=== PATIENT | male | born 1945 | race Caucasian/White ===

== ENCOUNTER 2017-06-20 19:11 | Emergency (ER) | payer OTHER ==
[~2017-06-20] VITALS: Ht 175.3 cm; Wt 102.1 kg
[2017-06-20 19:11] VITALS: BP_SYST 150
[~2017-06-20 19:11] MED LIST: ASPI325T2 PO; ATEN-41 PO; LISI-209 PO; OMEP20CA10 PO; SIMV40TA5 PO
[2017-06-20] MEDS ORDERED: ACETAMINOPHEN 500 MG TABLET PO ONE (19:30)
[2017-06-20] MEDS ORDERED: OXYCODONE/ACETAMINOPHEN 5-325 TABLET PO ONE (20:30)
[2017-06-20] MEDS ORDERED: oxyCODONE HCL 10 MG TAB.ER.12H PO ONE (20:45)
[2017-06-20] MEDS ORDERED: BUPIVACAINE /PF 0.25% 30 ML VIAL INJ ONE (21:30)
[2017-06-20] MEDS ORDERED: TETANUS IMMUNE GLOBULIN/PF 250 UNITS/SYR (HYPERTET) I.M. ONE (22:00)
[2017-06-20] MEDS ORDERED: BACITRACIN 1 GM OINT TP ONE ×2 (22:00→22:03)
[2017-06-20 22:10] VITALS: BP_SYST 131
== END 2017-06-20 22:00 | disposition home or self-care (01) ==
LOC: SED 19:11
DX: S01.112A Laceration without foreign body of left eyelid and periocular area, initial encounter (principal); S61.217A Laceration without foreign body of left little finger without damage to nail, initial encounter; I25.2 Old myocardial infarction; I10 Essential (primary) hypertension; Z99.2 Dependence on renal dialysis; Z79.82 Long term (current) use of aspirin; Z79.899 Other long term (current) drug therapy; W01.0XXA Fall on same level from slipping, tripping and stumbling without subsequent striking against object, initial encounter; Y93.01 Activity, walking, marching and hiking; Y92.89 Other specified places as the place of occurrence of the external cause; Y99.8 Other external cause status
CPT/HCPCS: 12002; 12013; 70450; 70486; 73130; 96372; 99284; J1670; J3490

== ENCOUNTER 2019-12-29 19:32 | Observation (INO) | payer OTHER ==
[~2019-12-29] VITALS: Ht 175.3 cm; Wt 72.6 kg
[~2019-12-29 19:32] MED LIST changes: +ASPI-858 PO; -ASPI325T2 PO; -OMEP20CA10 PO; +OMEP20CA11 PO
[2019-12-29 19:33] VITALS: BP_SYST 135
[2019-12-29] MEDS ORDERED: MORPHINE 2 MG/ML INJ. SYRINGE IVP ONE ×2 (20:15→21:45)
[2019-12-29] MEDS ORDERED: NITROGLYCERIN 1 INCH (GM) OINT. TP ONE (20:15)
[2019-12-29] MEDS ORDERED: NACL 0.9% 1,000 ML IV ONE (20:15)
[2019-12-29 20:34] LABS: BASOPHILS # (AUTO) 0.1 K/uL (0.0-0.2); BASOPHILS % (AUTO) 0.8 % (0.0-2.0); EOSINOPHILS # (AUTO) 0.1 K/uL (0.0-0.4); EOSINOPHILS % (AUTO) 1.2 % (0.0-4.0); HEMATOCRIT 45.3 % (36-54); HEMOGLOBIN 15.3 g/dL (14.0-18.0); LYMPHOCYTES # (AUTO) 2.3 K/uL (1.0-5.5); LYMPHOCYTES % (AUTO) 24.4 % (20.5-51.5); MEAN CORPUSCULAR HEMOGLOBIN 31 pg (27-31); MEAN CORPUSCULAR HGB CONC 34 % (32-36); MEAN CORPUSCULAR VOLUME 90 fL (79.0-98.0); MONOCYTES # (AUTO) 0.7 K/uL (0.0-1.0); NEUTROPHILS # (AUTO) 6.3 K/uL (1.8-7.7); NEUTROPHILS % (AUTO) 66.6 % (40.0-70.0); PLATELET COUNT (AUTO) 220 K/uL (130-430); RED BLOOD CELL COUNT(AUTO) 5.01 MIL/uL (4.2-6.2); RED CELL DISTRIBUTION WIDTH 13.6 % (9.0-15.0); WHITE BLOOD COUNT (AUTO) 9.4 K/uL (4.8-10.8)
[2019-12-29 20:37] LABS: ANION GAP 7 (5-15); CALCIUM 9.7 mg/dL (8.4-11.0); CHLORIDE 100 mmol/L (98-107); CREATININE 1.36 mg/dL (0.55-1.30); GLUCOSE 121 mg/dL (70-99); POTASSIUM 3.5 mmol/L (3.5-5.1); SODIUM SERUM 135 mmol/L (136-145); UREA NITROGEN, BLOOD 17 mg/dL (8-21)
[2019-12-29] MEDS ORDERED: FAMOTIDINE PF 20 MG/2 ML VIAL IVP ONE (20:45)
[2019-12-29 20:46] LABS: ALANINE AMINOTRANSFERASE 34 U/L (12-78); ALBUMIN 4.1 g/dL (3.4-4.8); ASPARTATE AMINOTRANSFERASE 30 U/L (10-37); TOTAL BILIRUBIN 0.9 mg/dL (0.0-1.0)
[2019-12-29 21:05] LABS: PROTHROMBIN TIME 9.9 SECS (9.5-12.5)
[2019-12-29 21:36] LABS: BILIRUBIN,URINE NEGATIVE (NEGATIVE); BLOOD, URINE NEGATIVE (NEGATIVE); CLARITY/URINE CLEAR (CLEAR); COLOR,URINE YELLOW (YELLOW); GLUCOSE,URINE NEGATIVE (NEGATIVE); KETONES,URINE NEGATIVE (NEGATIVE); LEUKOCYTE ESTERASE ,URINE NEGATIVE (NEGATIVE); NITRITE, URINE NEGATIVE (NEGATIVE); PROTEIN URINE NEGATIVE (NEGATIVE); UROBILINOGEN,URINE 0.2 (0.2-1.0)
[2019-12-29] MEDS ORDERED: IRBE150T48 PO (21:58)
[2019-12-29] MEDS ORDERED: ASPI-1153 PO (21:58)
[2019-12-29] MEDS ORDERED: ATEN-41 PO (21:58)
[2019-12-29] MEDS ORDERED: METH20TA PO (21:58)
[2019-12-29] MEDS ORDERED: HYDR12.55 PO (21:58)
[2019-12-29] MEDS ORDERED: TAMS-11 PO (21:58)
[2019-12-29] MEDS ORDERED: LISINOPRIL 10 MG TABLET (PRINIVIL) PO ONE (22:15)
[2019-12-29] MEDS ORDERED: MORPHINE 2 MG/ML INJ. SYRINGE IVP PRN (22:15)
[2019-12-29 22:35] VITALS: BP_SYST 148
[2019-12-29] MEDS: NACL 0.9% 1,000 ML IV SCH (22:50)
[2019-12-30 00:02] VITALS: BP_SYST 127
[2019-12-30] MEDS ORDERED: ACETAMINOPHEN 500 MG TABLET PO PRN (00:15)
[2019-12-30] MEDS: HYDROcodone/ACETAMIN 5-325 MG TAB (NORCO/ VICODIN) PO PRN ×3 (04:24→21:52)
[2019-12-30 04:35] VITALS: BP_SYST 119
[2019-12-30] MEDS: NACL 0.9% 1,000 ML IV SCH (08:03)
[2019-12-30 08:21] VITALS: BP_SYST 142
[2019-12-30] MEDS: TAMSULOSIN HCL 0.4 MG CAP PO SCH (08:59)
[2019-12-30] MEDS ORDERED: ATENOLOL 25 MG TABLET(TENORMIN) PO SCH (09:00)
[2019-12-30] MEDS ORDERED: LOSARTAN POTASSIUM 50 MG TABLET (COZAAR) PO SCH (09:00)
[2019-12-30] MEDS ORDERED: LISINOPRIL 10 MG TABLET (PRINIVIL) PO SCH (09:00)
[2019-12-30] MEDS: ASPIRIN 81 MG TABLET(ECOTRIN) PO SCH (09:01)
[2019-12-30] MEDS: HEPARIN SODIUM,PORCINE 5000 UNITS/ML VIAL SUBCUT SCH ×2 (09:02→21:51)
[2019-12-30] MEDS: SIMVASTATIN 40 MG TABLET PO SCH (09:02)
[2019-12-30] MEDS ORDERED: METOPROLOL SUCCINATE 50 MG TAB.SR.24H (TOPROL XL) PO ONE (09:45)
[2019-12-30 10:47] LABS: BASOPHILS % (AUTO) 0.6 % (0.0-2.0); EOSINOPHILS # (AUTO) 0.1 K/uL (0.0-0.4); EOSINOPHILS % (AUTO) 1.3 % (0.0-4.0); HEMATOCRIT 38.5 % (36-54); HEMOGLOBIN 13.2 g/dL (14.0-18.0); LYMPHOCYTES # (AUTO) 1.6 K/uL (1.0-5.5); LYMPHOCYTES % (AUTO) 19.9 % (20.5-51.5); MEAN CORPUSCULAR HEMOGLOBIN 30 pg (27-31); MEAN CORPUSCULAR HGB CONC 34 % (32-36); MEAN CORPUSCULAR VOLUME 88 fL (79.0-98.0); MONOCYTES # (AUTO) 0.6 K/uL (0.0-1.0); MONOCYTES % (AUTO) 7.8 % (1.7-9.3); NEUTROPHILS # (AUTO) 5.8 K/uL (1.8-7.7); NEUTROPHILS % (AUTO) 70.4 % (40.0-70.0); PLATELET COUNT (AUTO) 187 K/uL (130-430); RED BLOOD CELL COUNT(AUTO) 4.36 MIL/uL (4.2-6.2); RED CELL DISTRIBUTION WIDTH 13.2 % (9.0-15.0); WHITE BLOOD COUNT (AUTO) 8.3 K/uL (4.8-10.8)
[2019-12-30 11:06] LABS: ANION GAP 6 (5-15); CALCIUM 8.6 mg/dL (8.4-11.0); CHLORIDE 104 mmol/L (98-107); CREATININE 1.17 mg/dL (0.55-1.30); GLUCOSE 131 mg/dL (70-99); POTASSIUM 3.3 mmol/L (3.5-5.1); SODIUM SERUM 138 mmol/L (136-145); UREA NITROGEN, BLOOD 15 mg/dL (8-21)
[2019-12-30 11:14] LABS: PHOSPHORUS 2.2 mg/dL (2.7-4.5)
[2019-12-30 11:38] LABS: CHOLESTEROL 144 mg/dL (<200); HDL CHOLESTEROL 34 mg/dL (>45); LDL CHOLESTEROL 87 mg/dL (<100); TRIGLYCERIDES 175 mg/dL (30-150)
[2019-12-30 12:14] VITALS: BP_SYST 117
[2019-12-30] MEDS ORDERED: POTASSIUM CHLORIDE 20 MEQ TAB.PRT.SR PO ONE (14:00)
[2019-12-30 16:40] VITALS: BP_SYST 125
[2019-12-30 20:40] VITALS: BP_SYST 117
[2019-12-31 00:17] VITALS: BP_SYST 119
[2019-12-31 08:00] VITALS: BP_SYST 128
[2019-12-31] MEDS: HEPARIN SODIUM,PORCINE 5000 UNITS/ML VIAL SUBCUT SCH (08:40)
[2019-12-31] MEDS: TAMSULOSIN HCL 0.4 MG CAP PO SCH (08:41)
[2019-12-31] MEDS: SIMVASTATIN 40 MG TABLET PO SCH (08:41)
[2019-12-31] MEDS: ASPIRIN 81 MG TABLET(ECOTRIN) PO SCH (08:41)
[2019-12-31] MEDS ORDERED: LOSARTAN POTASSIUM 50 MG TABLET (COZAAR) PO SCH (09:00)
[2019-12-31] MEDS ORDERED: METOPROLOL SUCCINATE 50 MG TAB.SR.24H (TOPROL XL) PO SCH (09:00)
[2019-12-31] MEDS ORDERED: TOPXL100 PO (09:11)
[2019-12-31 10:42] LABS: BASOPHILS # (AUTO) 0.1 K/uL (0.0-0.2); BASOPHILS % (AUTO) 0.9 % (0.0-2.0); EOSINOPHILS # (AUTO) 0.2 K/uL (0.0-0.4); EOSINOPHILS % (AUTO) 2.3 % (0.0-4.0); HEMATOCRIT 39.8 % (36-54); HEMOGLOBIN 13.6 g/dL (14.0-18.0); LYMPHOCYTES # (AUTO) 2.1 K/uL (1.0-5.5); LYMPHOCYTES % (AUTO) 28.7 % (20.5-51.5); MEAN CORPUSCULAR HEMOGLOBIN 30 pg (27-31); MEAN CORPUSCULAR HGB CONC 34 % (32-36); MEAN CORPUSCULAR VOLUME 89 fL (79.0-98.0); MONOCYTES # (AUTO) 0.7 K/uL (0.0-1.0); MONOCYTES % (AUTO) 9.5 % (1.7-9.3); NEUTROPHILS # (AUTO) 4.2 K/uL (1.8-7.7); NEUTROPHILS % (AUTO) 58.6 % (40.0-70.0); PLATELET COUNT (AUTO) 203 K/uL (130-430); RED BLOOD CELL COUNT(AUTO) 4.48 MIL/uL (4.2-6.2); RED CELL DISTRIBUTION WIDTH 13.4 % (9.0-15.0); WHITE BLOOD COUNT (AUTO) 7.2 K/uL (4.8-10.8)
[2019-12-31 10:50] LABS: ANION GAP 8 (5-15); CALCIUM 9.3 mg/dL (8.4-11.0); CHLORIDE 105 mmol/L (98-107); CREATININE 1.07 mg/dL (0.55-1.30); GLUCOSE 88 mg/dL (70-99); SODIUM SERUM 140 mmol/L (136-145); UREA NITROGEN, BLOOD 15 mg/dL (8-21)
[2019-12-31 11:36] VITALS: BP_SYST 130
[2019-12-31 13:32] VITALS: BP_SYST 130
== END 2019-12-31 15:05 | disposition home or self-care (01) ==
LOC: SED 19:32 → STU 21:27 → INTOOBSV 21:27 → STU 21:57
DX: R07.89 Other chest pain (principal); I71.4 Abdominal aortic aneurysm, without rupture; I10 Essential (primary) hypertension; E78.5 Hyperlipidemia, unspecified; N40.0 Benign prostatic hyperplasia without lower urinary tract symptoms; K21.9 Gastro-esophageal reflux disease without esophagitis; G62.9 Polyneuropathy, unspecified; I25.2 Old myocardial infarction; E66.01 Morbid (severe) obesity due to excess calories; G89.29 Other chronic pain; M54.9 Dorsalgia, unspecified; Z87.891 Personal history of nicotine dependence; Z86.79 Personal history of other diseases of the circulatory system; Z79.82 Long term (current) use of aspirin; Z79.899 Other long term (current) drug therapy
CPT/HCPCS: 36415 ×3; 71045; 80048 ×2; 80053; 80061; 81003; 83735 ×2; 83880; 84100 ×2; 84484 ×3; 85025 ×3; 85379; 85610; 85730; 87081; 93005 ×2; 93306; 93970; 96361 ×3; 96372 ×2; 96374; 96375; 99285; G0378; J1644 ×2; J2270; J3490; J7030